=== PATIENT | female | born 1945 | race Native Hawaiian/Other Pacific Islander ===

== ENCOUNTER 2016-06-13 08:37 | Outpatient (CLI) | payer OTHER ==
[~2016-06-13 08:37] MED LIST: ENTERIC COATED325 MG PO; FURO40TA93 PO; LIPITOR20 MG PO; LISI10TA11 PO; POT CL MICRO20 MEQ OR; PREVACID30 MG OR; TRIA75TA61 PO; VESICARE10 MG OR; WARFARIN2.5 MG PO
[2016-06-13 09:10] LABS: POTASSIUM 3.6 mmol/L (3.6-5.2)
== END 2016-06-13 21:42 | disposition home or self-care (01) ==
LOC: LABW 08:37
PROVIDERS: Nurse Practitioner Adult Health
DX: Z79.01 Long term (current) use of anticoagulants (principal); Z79.899 Other long term (current) drug therapy; I48.0 Paroxysmal atrial fibrillation; Z51.81 Encounter for therapeutic drug level monitoring
CPT/HCPCS: 36415; 80048; 85610

== ENCOUNTER 2016-07-04 08:07 | Outpatient (CLI) | payer OTHER | END 2016-07-04 09:07 | disposition home or self-care (01) | LOC: LABW 08:07 | DX: Z79.01 Long term (current) use of anticoagulants (principal); I48.0 Paroxysmal atrial fibrillation; Z51.81 Encounter for therapeutic drug level monitoring | CPT/HCPCS: 36415; 85610 ==

== ENCOUNTER 2016-07-11 08:39 | Outpatient (CLI) | payer OTHER | END 2016-07-11 19:59 | disposition home or self-care (01) | LOC: LABW 08:39 | DX: Z79.01 Long term (current) use of anticoagulants (principal); I48.0 Paroxysmal atrial fibrillation; Z51.81 Encounter for therapeutic drug level monitoring | CPT/HCPCS: 36415; 85610 ==

== ENCOUNTER 2016-07-18 08:14 | Outpatient (CLI) | payer OTHER | END 2016-07-18 19:26 | disposition home or self-care (01) | LOC: LABW 08:14 | DX: Z79.01 Long term (current) use of anticoagulants (principal); I48.0 Paroxysmal atrial fibrillation; Z51.81 Encounter for therapeutic drug level monitoring | CPT/HCPCS: 36415; 85610 ==

== ENCOUNTER 2016-07-25 08:27 | Outpatient (CLI) | payer OTHER | END 2016-07-25 19:27 | disposition home or self-care (01) | LOC: LABW 08:27 | DX: Z79.01 Long term (current) use of anticoagulants (principal); I48.0 Paroxysmal atrial fibrillation; Z51.81 Encounter for therapeutic drug level monitoring | CPT/HCPCS: 85610 ==

== ENCOUNTER 2016-08-08 08:07 | Outpatient (CLI) | payer OTHER | END 2016-08-08 19:14 | disposition home or self-care (01) | LOC: LABW 08:07 | DX: Z79.01 Long term (current) use of anticoagulants (principal); I48.0 Paroxysmal atrial fibrillation; Z51.81 Encounter for therapeutic drug level monitoring | CPT/HCPCS: 36415; 85610 ==

== ENCOUNTER 2016-08-22 08:21 | Outpatient (CLI) | payer OTHER ==
[2016-08-22 08:50] LABS: POTASSIUM 3.4 mmol/L (3.6-5.2)
== END 2016-08-22 19:59 | disposition home or self-care (01) ==
LOC: LABW 08:21
PROVIDERS: Nurse Practitioner Adult Health
DX: I25.10 Atherosclerotic heart disease of native coronary artery without angina pectoris (principal); Z79.899 Other long term (current) drug therapy; Z51.81 Encounter for therapeutic drug level monitoring; Z79.01 Long term (current) use of anticoagulants; I48.0 Paroxysmal atrial fibrillation
CPT/HCPCS: 36415; 80048; 85610

== ENCOUNTER 2016-09-08 09:08 | Outpatient (CLI) | payer OTHER | END 2016-09-08 19:10 | disposition home or self-care (01) | LOC: MAMMO 09:08 | DX: Z12.31 Encounter for screening mammogram for malignant neoplasm of breast (principal); M81.0 Age-related osteoporosis without current pathological fracture | CPT/HCPCS: G0202-TC ==

== ENCOUNTER 2016-09-12 08:27 | Outpatient (CLI) | payer OTHER | END 2016-09-12 20:25 | disposition home or self-care (01) | LOC: LABW 08:27 | DX: Z79.01 Long term (current) use of anticoagulants (principal); I48.0 Paroxysmal atrial fibrillation; Z51.81 Encounter for therapeutic drug level monitoring | CPT/HCPCS: 36415; 85610 ==

== ENCOUNTER 2016-09-17 08:40 | Outpatient (CLI) | payer OTHER ==
[2016-09-17 10:04] LABS: POTASSIUM 4.3 mmol/L (3.6-5.2)
== END 2016-09-17 19:04 | disposition home or self-care (01) ==
LOC: LABW 08:40
PROVIDERS: Nurse Practitioner Adult Health
DX: I25.10 Atherosclerotic heart disease of native coronary artery without angina pectoris (principal); Z79.899 Other long term (current) drug therapy; Z51.81 Encounter for therapeutic drug level monitoring
CPT/HCPCS: 36415; 80048

== ENCOUNTER 2016-10-03 08:04 | Outpatient (CLI) | payer OTHER ==
[~2016-10-03] VITALS: Ht 157.5 cm; Wt 92.5 kg
[2016-10-03 08:36] VITALS: BP 128/76; TEMP 98
[2016-10-03 10:15] VITALS: BP 137/63; TEMP 97.9
== END 2016-10-03 10:15 | disposition home or self-care (01) ==
LOC: INF 08:04
DX: M81.0 Age-related osteoporosis without current pathological fracture (principal); Z79.01 Long term (current) use of anticoagulants; I48.0 Paroxysmal atrial fibrillation; Z51.81 Encounter for therapeutic drug level monitoring
CPT/HCPCS: 36415; 82310; 85610; 96372; J0897

== ENCOUNTER 2016-10-24 08:11 | Outpatient (CLI) | payer OTHER ==
[2016-10-24 08:33] LABS: POTASSIUM 3.9 mmol/L (3.6-5.2)
== END 2016-10-24 19:02 | disposition home or self-care (01) ==
LOC: LABW 08:11
PROVIDERS: Nurse Practitioner Adult Health
DX: I25.10 Atherosclerotic heart disease of native coronary artery without angina pectoris (principal); Z79.899 Other long term (current) drug therapy; Z51.81 Encounter for therapeutic drug level monitoring; Z79.01 Long term (current) use of anticoagulants; I48.0 Paroxysmal atrial fibrillation
CPT/HCPCS: 36415; 80048; 85610

== ENCOUNTER 2016-11-03 08:43 | Outpatient (CLI) | payer OTHER ==
[2016-11-03 09:39] LABS: PLATELET COUNT 134 K/uL (152-353)
[2016-11-03 09:56] LABS: POTASSIUM 4.2 mmol/L (3.6-5.2)
== END 2016-11-03 19:24 | disposition home or self-care (01) ==
LOC: LABW 08:43
PROVIDERS: Internal Medicine Hematology & Oncology
DX: Z79.01 Long term (current) use of anticoagulants (principal); Z51.81 Encounter for therapeutic drug level monitoring; I48.0 Paroxysmal atrial fibrillation; D64.89 Other specified anemias
CPT/HCPCS: 36415; 80053; 82728; 83540; 83550; 85027; 85610

== ENCOUNTER 2016-11-04 09:58 | Outpatient (CLI) | payer OTHER | END 2016-11-04 19:10 | disposition home or self-care (01) | LOC: RAD 09:58 | DX: R51 Headache (principal); M89.8X1 Other specified disorders of bone, shoulder; M25.511 Pain in right shoulder; R07.89 Other chest pain ==

== ENCOUNTER 2016-11-11 08:24 | Outpatient (CLI) | payer OTHER | END 2016-11-11 09:30 | disposition home or self-care (01) | LOC: LABW 08:24 | DX: Z79.01 Long term (current) use of anticoagulants (principal); I48.0 Paroxysmal atrial fibrillation; Z51.81 Encounter for therapeutic drug level monitoring | CPT/HCPCS: 36415; 85610 ==

== ENCOUNTER 2016-11-21 08:38 | Outpatient (CLI) | payer OTHER | END 2016-11-21 09:45 | disposition home or self-care (01) | LOC: LABW 08:38 | PROVIDERS: Nurse Practitioner Adult Health | DX: I25.10 Atherosclerotic heart disease of native coronary artery without angina pectoris (principal); Z79.899 Other long term (current) drug therapy; Z51.81 Encounter for therapeutic drug level monitoring; Z79.01 Long term (current) use of anticoagulants; I48.0 Paroxysmal atrial fibrillation | CPT/HCPCS: 36415; 80048; 85610 ==

== ENCOUNTER 2016-12-12 07:47 | Outpatient (CLI) | payer OTHER | END 2016-12-12 19:08 | disposition home or self-care (01) | LOC: LABW 07:47 | DX: Z79.01 Long term (current) use of anticoagulants (principal); I48.0 Paroxysmal atrial fibrillation; Z51.81 Encounter for therapeutic drug level monitoring | CPT/HCPCS: 36415; 85610 ==

== ENCOUNTER 2017-01-01 10:03 | Outpatient (CLI) | payer OTHER | END 2017-01-01 19:57 | disposition home or self-care (01) | LOC: US 10:03 | DX: R09.89 Other specified symptoms and signs involving the circulatory and respiratory systems (principal) ==

== ENCOUNTER 2017-01-02 08:02 | Outpatient (CLI) | payer OTHER | END 2017-01-02 09:05 | disposition home or self-care (01) | LOC: LABW 08:02 | PROVIDERS: Nurse Practitioner Adult Health | DX: I10 Essential (primary) hypertension (principal); Z79.01 Long term (current) use of anticoagulants; I48.0 Paroxysmal atrial fibrillation; Z51.81 Encounter for therapeutic drug level monitoring | CPT/HCPCS: 36415; 80061; 85610 ==

== ENCOUNTER 2017-01-09 07:53 | Outpatient (CLI) | payer OTHER | END 2017-01-09 19:58 | disposition home or self-care (01) | LOC: LABW 07:53 | DX: Z79.01 Long term (current) use of anticoagulants (principal); I48.0 Paroxysmal atrial fibrillation; Z51.81 Encounter for therapeutic drug level monitoring | CPT/HCPCS: 36415; 85610 ==

== ENCOUNTER 2017-01-19 08:39 | Outpatient (CLI) | payer OTHER | END 2017-01-19 19:31 | disposition home or self-care (01) | LOC: LABW 08:39 | DX: Z79.01 Long term (current) use of anticoagulants (principal); I48.0 Paroxysmal atrial fibrillation; Z51.81 Encounter for therapeutic drug level monitoring | CPT/HCPCS: 36415; 85610 ==

== ENCOUNTER 2017-01-30 10:00 | Outpatient (CLI) | payer OTHER | END 2017-01-30 11:00 | disposition home or self-care (01) | LOC: LABW 10:00 | DX: Z79.01 Long term (current) use of anticoagulants (principal); I48.0 Paroxysmal atrial fibrillation; Z51.81 Encounter for therapeutic drug level monitoring | CPT/HCPCS: 36415; 85610 ==

== ENCOUNTER 2017-02-06 07:45 | Outpatient (CLI) | payer OTHER | END 2017-02-06 18:53 | disposition home or self-care (01) | LOC: LABW 07:45 | DX: Z79.01 Long term (current) use of anticoagulants (principal); I48.0 Paroxysmal atrial fibrillation; Z51.81 Encounter for therapeutic drug level monitoring | CPT/HCPCS: 85610 ==

== ENCOUNTER 2017-02-13 07:53 | Outpatient (CLI) | payer OTHER | END 2017-02-13 08:55 | disposition home or self-care (01) | LOC: LABW 07:53 | DX: Z79.01 Long term (current) use of anticoagulants (principal); I48.0 Paroxysmal atrial fibrillation; Z51.81 Encounter for therapeutic drug level monitoring | CPT/HCPCS: 36415; 85610 ==

== ENCOUNTER 2017-02-20 07:52 | Outpatient (CLI) | payer OTHER | END 2017-02-20 19:08 | disposition home or self-care (01) | LOC: LABW 07:52 | DX: Z79.01 Long term (current) use of anticoagulants (principal); I48.0 Paroxysmal atrial fibrillation; Z51.81 Encounter for therapeutic drug level monitoring | CPT/HCPCS: 36415; 85610 ==

== ENCOUNTER 2017-02-27 08:23 | Outpatient (CLI) | payer OTHER | END 2017-02-27 09:25 | disposition home or self-care (01) | LOC: LABW 08:23 | DX: Z79.01 Long term (current) use of anticoagulants (principal); I48.0 Paroxysmal atrial fibrillation; Z51.81 Encounter for therapeutic drug level monitoring | CPT/HCPCS: 36415; 85610 ==

== ENCOUNTER 2017-03-06 08:27 | Outpatient (CLI) | payer OTHER | END 2017-03-06 19:06 | disposition home or self-care (01) | LOC: LABW 08:27 | DX: Z79.01 Long term (current) use of anticoagulants (principal); I48.0 Paroxysmal atrial fibrillation; Z51.81 Encounter for therapeutic drug level monitoring | CPT/HCPCS: 36415; 85610 ==

== ENCOUNTER 2017-03-13 08:06 | Outpatient (CLI) | payer OTHER | END 2017-03-13 09:10 | disposition home or self-care (01) | LOC: LABW 08:06 | DX: Z79.01 Long term (current) use of anticoagulants (principal); I48.0 Paroxysmal atrial fibrillation; Z51.81 Encounter for therapeutic drug level monitoring | CPT/HCPCS: 36415; 85610 ==

== ENCOUNTER 2017-03-16 08:15 | Outpatient (CLI) | payer OTHER | END 2017-03-16 09:15 | disposition home or self-care (01) | LOC: LABW 08:15 | DX: M81.0 Age-related osteoporosis without current pathological fracture (principal) | CPT/HCPCS: 36415; 82306 ==

== ENCOUNTER 2017-03-20 07:59 | Outpatient (CLI) | payer OTHER | END 2017-03-20 19:01 | disposition home or self-care (01) | LOC: LABW 07:59 | DX: Z79.01 Long term (current) use of anticoagulants (principal); Z51.81 Encounter for therapeutic drug level monitoring; I48.0 Paroxysmal atrial fibrillation | CPT/HCPCS: 36415; 85610 ==

== ENCOUNTER 2017-04-01 16:26 | Outpatient (CLI) | payer OTHER | END 2017-04-01 19:14 | disposition home or self-care (01) | LOC: US 16:26 → RAD 16:26 → US 19:14 | DX: M79.89 Other specified soft tissue disorders (principal) ==

== ENCOUNTER 2017-04-03 08:01 | Outpatient (CLI) | payer OTHER | END 2017-04-03 09:05 | disposition home or self-care (01) | LOC: LABW 08:01 | DX: Z79.01 Long term (current) use of anticoagulants (principal); I48.0 Paroxysmal atrial fibrillation; Z51.81 Encounter for therapeutic drug level monitoring | CPT/HCPCS: 36415; 85610 ==

== ENCOUNTER 2017-04-09 09:50 | Outpatient (CLI) | payer OTHER | END 2017-04-09 19:12 | disposition home or self-care (01) | LOC: RAD 09:50 | DX: M79.605 Pain in left leg (principal) ==

== ENCOUNTER 2017-04-24 08:13 | Outpatient (CLI) | payer OTHER | END 2017-04-24 09:15 | disposition home or self-care (01) | LOC: LABW 08:13 | DX: Z79.01 Long term (current) use of anticoagulants (principal); I48.0 Paroxysmal atrial fibrillation; Z51.81 Encounter for therapeutic drug level monitoring | CPT/HCPCS: 36415; 85610 ==

== ENCOUNTER 2017-05-05 07:59 | Outpatient (CLI) | payer OTHER ==
[2017-05-05 08:33] LABS: PLATELET COUNT 119 K/uL (152-353)
[2017-05-05 09:02] LABS: POTASSIUM 4.3 mmol/L (3.6-5.2)
== END 2017-05-05 09:00 | disposition home or self-care (01) ==
LOC: LABW 07:59
PROVIDERS: Internal Medicine Hematology & Oncology
DX: D64.9 Anemia, unspecified (principal)
CPT/HCPCS: 36415; 80053; 82607; 82728; 83540; 83550; 85027

== ENCOUNTER 2017-05-15 08:08 | Outpatient (CLI) | payer OTHER | END 2017-05-15 09:10 | disposition home or self-care (01) | LOC: LABW 08:08 | DX: Z79.01 Long term (current) use of anticoagulants (principal); I48.0 Paroxysmal atrial fibrillation; Z51.81 Encounter for therapeutic drug level monitoring | CPT/HCPCS: 36415; 85610 ==

== ENCOUNTER 2017-06-05 08:39 | Outpatient (CLI) | payer OTHER | END 2017-06-06 05:17 | disposition home or self-care (01) | LOC: LABW 08:39 | DX: Z79.01 Long term (current) use of anticoagulants (principal); Z51.81 Encounter for therapeutic drug level monitoring; I48.0 Paroxysmal atrial fibrillation | CPT/HCPCS: 36415; 85610 ==

== ENCOUNTER 2017-06-26 08:09 | Outpatient (CLI) | payer OTHER ==
[2017-06-26 08:41] LABS: PLATELET COUNT 127 K/uL (152-353)
[2017-06-26 09:11] LABS: POTASSIUM 4.2 mmol/L (3.6-5.2)
== END 2017-06-26 21:48 | disposition home or self-care (01) ==
LOC: LABW 08:09
PROVIDERS: Internal Medicine
DX: Z79.01 Long term (current) use of anticoagulants (principal); Z51.81 Encounter for therapeutic drug level monitoring; I48.0 Paroxysmal atrial fibrillation; N18.4 Chronic kidney disease, stage 4 (severe); Z79.899 Other long term (current) drug therapy
CPT/HCPCS: 36415; 80053; 81000; 82043; 82330; 82570; 82728; 82746; 83036; 83735; 83970; 84100; 84155; 84439; 84443; 84550; 85027; 85610; 85651; 86430; 87077; 87086; 87088; 87186

== ENCOUNTER 2017-07-17 08:19 | Outpatient (CLI) | payer OTHER | END 2017-07-17 19:37 | disposition home or self-care (01) | LOC: LABW 08:19 | DX: Z79.01 Long term (current) use of anticoagulants (principal); Z51.81 Encounter for therapeutic drug level monitoring; I48.0 Paroxysmal atrial fibrillation | CPT/HCPCS: 36415; 85610 ==

== ENCOUNTER 2017-08-07 08:50 | Outpatient (CLI) | payer OTHER | END 2017-08-07 21:21 | disposition home or self-care (01) | LOC: LABW 08:50 | DX: Z79.01 Long term (current) use of anticoagulants (principal); I48.0 Paroxysmal atrial fibrillation; Z51.81 Encounter for therapeutic drug level monitoring | CPT/HCPCS: 36415; 85610 ==

== ENCOUNTER 2017-08-28 08:27 | Outpatient (CLI) | payer OTHER | END 2017-08-28 19:01 | disposition home or self-care (01) | LOC: LABW 08:27 | DX: Z79.01 Long term (current) use of anticoagulants (principal); Z51.81 Encounter for therapeutic drug level monitoring; I48.0 Paroxysmal atrial fibrillation | CPT/HCPCS: 36415; 85610 ==

== ENCOUNTER 2017-09-07 11:37 | Outpatient (CLI) | payer OTHER ==
[2017-09-07 12:02] LABS: POTASSIUM 4.2 mmol/L (3.6-5.2)
== END 2017-09-07 21:49 | disposition home or self-care (01) ==
LOC: LABW 11:37
PROVIDERS: Internal Medicine
DX: E21.0 Primary hyperparathyroidism (principal)
CPT/HCPCS: 36415; 80053

== ENCOUNTER 2017-09-18 08:40 | Outpatient (CLI) | payer OTHER | END 2017-09-18 22:24 | disposition home or self-care (01) | LOC: LABW 08:40 | DX: Z79.01 Long term (current) use of anticoagulants (principal); Z51.81 Encounter for therapeutic drug level monitoring; I48.0 Paroxysmal atrial fibrillation | CPT/HCPCS: 36415; 85610 ==

== ENCOUNTER 2017-10-09 08:16 | Outpatient (CLI) | payer OTHER | END 2017-10-09 22:43 | disposition home or self-care (01) | LOC: LABW 08:16 | DX: Z79.01 Long term (current) use of anticoagulants (principal); I48.0 Paroxysmal atrial fibrillation; Z51.81 Encounter for therapeutic drug level monitoring | CPT/HCPCS: 36415; 85610 ==

== ENCOUNTER 2017-10-30 08:22 | Outpatient (CLI) | payer OTHER ==
[2017-10-30 09:06] LABS: PLATELET COUNT 133 K/uL (152-353)
[2017-10-30 09:18] LABS: POTASSIUM 4.2 mmol/L (3.6-5.2)
== END 2017-10-30 19:21 | disposition home or self-care (01) ==
LOC: LABW 08:22
PROVIDERS: Internal Medicine
DX: E21.0 Primary hyperparathyroidism (principal); N18.4 Chronic kidney disease, stage 4 (severe); Z79.01 Long term (current) use of anticoagulants; I48.0 Paroxysmal atrial fibrillation; Z51.81 Encounter for therapeutic drug level monitoring; R82.99 Other abnormal findings in urine
CPT/HCPCS: 36415; 80053; 81000; 82043; 82306; 82330; 82570; 83735; 83970; 84100; 84155; 85027; 85610; 87077; 87086; 87088; 87186

== ENCOUNTER 2017-11-06 08:05 | Outpatient (CLI) | payer OTHER | END 2017-11-06 19:09 | disposition home or self-care (01) | LOC: MAMMO 08:05 | DX: Z12.31 Encounter for screening mammogram for malignant neoplasm of breast (principal) ==

== ENCOUNTER 2017-11-11 08:15 | Outpatient (CLI) | payer OTHER ==
[2017-11-11 08:51] LABS: PLATELET COUNT 119 K/uL (152-353)
[2017-11-11 09:28] LABS: POTASSIUM 4.1 mmol/L (3.6-5.2)
== END 2017-11-11 19:23 | disposition home or self-care (01) ==
LOC: LABW 08:15
PROVIDERS: Internal Medicine Hematology & Oncology
DX: R53.83 Other fatigue (principal); R53.81 Other malaise; D64.9 Anemia, unspecified
CPT/HCPCS: 36415; 80053; 82248; 82728; 83540; 83550; 85027

== ENCOUNTER 2017-11-20 08:48 | Outpatient (CLI) | payer OTHER | END 2017-11-20 19:13 | disposition home or self-care (01) | LOC: LABW 08:48 | DX: I48.0 Paroxysmal atrial fibrillation (principal); Z79.01 Long term (current) use of anticoagulants | CPT/HCPCS: 36415; 85610 ==

== ENCOUNTER 2017-12-11 08:29 | Outpatient (CLI) | payer OTHER | END 2017-12-11 22:02 | disposition home or self-care (01) | LOC: LABW 08:29 | DX: Z79.01 Long term (current) use of anticoagulants (principal); I48.0 Paroxysmal atrial fibrillation; Z51.81 Encounter for therapeutic drug level monitoring | CPT/HCPCS: 36415; 85610 ==

== ENCOUNTER 2017-12-23 10:40 | Day surgery (SDC) | payer OTHER ==
[2017-12-23 12:17] LABS: PLATELET COUNT 130 K/uL (152-353)
[2017-12-23 12:19] LABS: POTASSIUM 4.5 mmol/L (3.6-5.2)
== END 2017-12-23 14:55 | disposition home or self-care (01) ==
LOC: OR 10:40
PROVIDERS: Internal Medicine Gastroenterology
PROC: 0DJD8ZZ Inspection of Lower Intestinal Tract, Via Natural or Artificial Opening Endoscopic (ICD-10-PCS; principal; 2017-12-23)
DX: K57.30 Diverticulosis of large intestine without perforation or abscess without bleeding (principal); K64.8 Other hemorrhoids; D50.8 Other iron deficiency anemias; Z80.0 Family history of malignant neoplasm of digestive organs
CPT/HCPCS: 80053; 85027; J2001; J2250; J2704

== ENCOUNTER 2018-01-01 08:10 | Outpatient (CLI) | payer OTHER | END 2018-01-01 19:14 | disposition home or self-care (01) | LOC: LABW 08:10 | PROVIDERS: Nurse Practitioner Adult Health | DX: E78.2 Mixed hyperlipidemia (principal); Z79.899 Other long term (current) drug therapy; Z79.01 Long term (current) use of anticoagulants | CPT/HCPCS: 36415; 80061; 80076; 85610 ==

== ENCOUNTER 2018-01-08 09:05 | Outpatient (CLI) | payer OTHER | END 2018-01-08 19:51 | disposition home or self-care (01) | LOC: LABW 09:05 | DX: I48.0 Paroxysmal atrial fibrillation (principal); Z79.01 Long term (current) use of anticoagulants | CPT/HCPCS: 36415; 85610 ==

== ENCOUNTER 2018-01-15 08:12 | Outpatient (CLI) | payer OTHER | END 2018-01-15 19:37 | disposition home or self-care (01) | LOC: LABW 08:12 | DX: Z79.01 Long term (current) use of anticoagulants (principal); I48.0 Paroxysmal atrial fibrillation | CPT/HCPCS: 36415; 85610 ==

== ENCOUNTER 2018-01-22 08:34 | Outpatient (CLI) | payer OTHER | END 2018-01-22 22:40 | disposition home or self-care (01) | LOC: LABW 08:34 | DX: Z79.01 Long term (current) use of anticoagulants (principal); I48.0 Paroxysmal atrial fibrillation | CPT/HCPCS: 36415; 85610 ==

== ENCOUNTER 2018-01-25 14:24 | Outpatient (CLI) | payer OTHER ==
[2018-01-25 14:41] LABS: PLATELET COUNT 159 K/uL (152-353)
== END 2018-01-25 20:53 | disposition home or self-care (01) ==
LOC: LABW 14:24
PROVIDERS: Nurse Practitioner Adult Health
DX: Z79.899 Other long term (current) drug therapy (principal); I48.0 Paroxysmal atrial fibrillation
CPT/HCPCS: 36415; 84436; 84443; 84479; 85027

== ENCOUNTER 2018-02-05 08:19 | Outpatient (CLI) | payer OTHER | END 2018-02-05 23:24 | disposition home or self-care (01) | LOC: LABW 08:19 | DX: I48.0 Paroxysmal atrial fibrillation (principal); Z79.01 Long term (current) use of anticoagulants | CPT/HCPCS: 36415; 85610 ==

== ENCOUNTER 2018-02-26 08:16 | Outpatient (CLI) | payer OTHER | END 2018-02-26 19:03 | disposition home or self-care (01) | LOC: LABW 08:16 | DX: I48.0 Paroxysmal atrial fibrillation (principal); Z79.01 Long term (current) use of anticoagulants | CPT/HCPCS: 36415; 85610 ==

== ENCOUNTER 2018-03-19 08:15 | Outpatient (CLI) | payer OTHER | END 2018-03-19 20:14 | disposition home or self-care (01) | LOC: LABW 08:15 | DX: I48.0 Paroxysmal atrial fibrillation (principal); Z79.01 Long term (current) use of anticoagulants | CPT/HCPCS: 36415; 85610 ==

== ENCOUNTER 2018-04-09 08:35 | Outpatient (CLI) | payer OTHER | END 2018-04-09 19:46 | disposition home or self-care (01) | LOC: LABW 08:35 | DX: Z79.01 Long term (current) use of anticoagulants (principal); I48.0 Paroxysmal atrial fibrillation | CPT/HCPCS: 36415; 85610 ==

== ENCOUNTER 2018-04-30 08:23 | Outpatient (CLI) | payer OTHER | END 2018-04-30 20:30 | disposition home or self-care (01) | LOC: LABW 08:23 | DX: I48.0 Paroxysmal atrial fibrillation (principal); Z79.01 Long term (current) use of anticoagulants | CPT/HCPCS: 36415; 85610 ==

== ENCOUNTER 2018-05-07 08:25 | Outpatient (CLI) | payer OTHER | END 2018-05-07 22:52 | disposition home or self-care (01) | LOC: LABW 08:25 | DX: Z79.01 Long term (current) use of anticoagulants (principal); I48.0 Paroxysmal atrial fibrillation | CPT/HCPCS: 36415; 85610 ==

== ENCOUNTER 2018-05-21 08:40 | Outpatient (CLI) | payer OTHER ==
[2018-05-21 09:05] LABS: PLATELET COUNT 170 K/uL (152-353)
[2018-05-21 09:07] LABS: POTASSIUM 4.1 mmol/L (3.6-5.2)
== END 2018-05-21 21:22 | disposition home or self-care (01) ==
LOC: LABW 08:40
PROVIDERS: Nurse Practitioner Family
DX: D64.9 Anemia, unspecified (principal); R53.83 Other fatigue; R53.81 Other malaise; R79.1 Abnormal coagulation profile
CPT/HCPCS: 36415; 80053; 85027; 85610

== ENCOUNTER 2018-06-10 08:52 | Outpatient (CLI) | payer OTHER | END 2018-06-10 19:08 | disposition home or self-care (01) | LOC: LABW 08:52 | DX: Z79.01 Long term (current) use of anticoagulants (principal); I48.0 Paroxysmal atrial fibrillation | CPT/HCPCS: 36415; 85610 ==

== ENCOUNTER 2018-07-01 08:07 | Outpatient (CLI) | payer OTHER | END 2018-07-01 23:15 | disposition home or self-care (01) | LOC: LABW 08:07 | DX: I48.0 Paroxysmal atrial fibrillation (principal); Z79.01 Long term (current) use of anticoagulants | CPT/HCPCS: 36415; 85610 ==

== ENCOUNTER 2018-07-09 08:39 | Outpatient (CLI) | payer OTHER | END 2018-07-09 22:37 | disposition home or self-care (01) | LOC: LABW 08:39 | DX: I48.0 Paroxysmal atrial fibrillation (principal); Z79.01 Long term (current) use of anticoagulants | CPT/HCPCS: 36415; 85610 ==

== ENCOUNTER 2018-07-23 09:00 | Outpatient (CLI) | payer OTHER | END 2018-07-23 19:38 | disposition home or self-care (01) | LOC: LABW 09:00 | DX: I48.0 Paroxysmal atrial fibrillation (principal); Z79.01 Long term (current) use of anticoagulants | CPT/HCPCS: 36415; 85610 ==

== ENCOUNTER 2018-07-30 08:19 | Outpatient (CLI) | payer OTHER | END 2018-07-30 22:20 | disposition home or self-care (01) | LOC: LABW 08:19 | DX: I48.0 Paroxysmal atrial fibrillation (principal); Z79.01 Long term (current) use of anticoagulants | CPT/HCPCS: 36415; 85610 ==

== ENCOUNTER 2018-08-06 08:23 | Outpatient (CLI) | payer OTHER | END 2018-08-06 19:06 | disposition home or self-care (01) | LOC: LABW 08:23 | DX: I48.0 Paroxysmal atrial fibrillation (principal); Z79.01 Long term (current) use of anticoagulants | CPT/HCPCS: 36415; 85610 ==

== ENCOUNTER 2018-08-13 09:57 | Outpatient (CLI) | payer OTHER | END 2018-08-13 23:59 | disposition home or self-care (01) | LOC: LABW 09:57 | DX: I48.0 Paroxysmal atrial fibrillation (principal); Z79.01 Long term (current) use of anticoagulants | CPT/HCPCS: 36415; 85610 ==

== ENCOUNTER 2018-08-20 09:16 | Outpatient (CLI) | payer OTHER | END 2018-08-20 19:46 | disposition home or self-care (01) | LOC: LABW 09:16 | DX: Z79.01 Long term (current) use of anticoagulants (principal); I48.0 Paroxysmal atrial fibrillation | CPT/HCPCS: 36415; 85610 ==

== ENCOUNTER 2018-09-03 09:30 | Outpatient (CLI) | payer OTHER | END 2018-09-03 20:06 | disposition home or self-care (01) | LOC: LABW 09:30 | DX: Z79.01 Long term (current) use of anticoagulants (principal); I48.0 Paroxysmal atrial fibrillation | CPT/HCPCS: 36415; 85610 ==

== ENCOUNTER 2018-09-08 09:03 | Outpatient (CLI) | payer OTHER ==
[2018-09-08 09:59] LABS: PLATELET COUNT 133 K/uL (152-353)
== END 2018-09-08 20:39 | disposition home or self-care (01) ==
LOC: LABW 09:03
PROVIDERS: Internal Medicine Gastroenterology
DX: D50.8 Other iron deficiency anemias (principal)
CPT/HCPCS: 36415; 82728; 83540; 85027

== ENCOUNTER 2018-09-20 08:32 | Outpatient (CLI) | payer OTHER ==
[2018-09-20 09:11] LABS: PLATELET COUNT 118 K/uL (152-353)
== END 2018-09-20 19:30 | disposition home or self-care (01) ==
LOC: LABW 08:32
PROVIDERS: Nurse Practitioner Family
DX: D64.9 Anemia, unspecified (principal)
CPT/HCPCS: 36415; 80053; 82728; 83540; 83550; 85027

== ENCOUNTER 2018-09-24 08:57 | Outpatient (CLI) | payer OTHER | END 2018-09-24 22:39 | disposition home or self-care (01) | LOC: LABW 08:57 | DX: Z79.01 Long term (current) use of anticoagulants (principal); I48.0 Paroxysmal atrial fibrillation | CPT/HCPCS: 36415; 85610 ==

== ENCOUNTER 2018-10-15 08:15 | Outpatient (CLI) | payer OTHER | END 2018-10-15 19:33 | disposition home or self-care (01) | LOC: LABW 08:15 | DX: Z79.01 Long term (current) use of anticoagulants (principal); I48.0 Paroxysmal atrial fibrillation | CPT/HCPCS: 36415; 85610 ==

== ENCOUNTER 2018-11-05 07:59 | Outpatient (CLI) | payer OTHER | END 2018-11-05 21:34 | disposition home or self-care (01) | LOC: LABW 07:59 | PROVIDERS: Nurse Practitioner Adult Health | DX: Z00.00 Encounter for general adult medical examination without abnormal findings (principal); I48.0 Paroxysmal atrial fibrillation; Z79.01 Long term (current) use of anticoagulants; I10 Essential (primary) hypertension; Z79.899 Other long term (current) drug therapy | CPT/HCPCS: 36415; 80061; 81000; 84439; 84443; 85610 ==

== ENCOUNTER 2018-11-11 08:41 | Outpatient (CLI) | payer OTHER | END 2018-11-11 19:41 | disposition home or self-care (01) | LOC: LABW 08:41 | DX: E78.2 Mixed hyperlipidemia (principal); Z79.899 Other long term (current) drug therapy; Z79.01 Long term (current) use of anticoagulants; I48.0 Paroxysmal atrial fibrillation | CPT/HCPCS: 36415; 80076; 85610 ==

== ENCOUNTER 2018-11-18 08:34 | Outpatient (CLI) | payer OTHER | END 2018-11-18 23:05 | disposition home or self-care (01) | LOC: LABW 08:34 | DX: I48.0 Paroxysmal atrial fibrillation (principal); Z79.01 Long term (current) use of anticoagulants | CPT/HCPCS: 36415; 85610 ==

== ENCOUNTER 2018-12-03 08:14 | Outpatient (CLI) | payer OTHER | END 2018-12-03 20:40 | disposition home or self-care (01) | LOC: LABW 08:14 | DX: I48.0 Paroxysmal atrial fibrillation (principal); Z79.01 Long term (current) use of anticoagulants | CPT/HCPCS: 36415; 85610 ==

== ENCOUNTER 2018-12-24 08:17 | Outpatient (CLI) | payer OTHER ==
[2018-12-24 08:52] LABS: PLATELET COUNT 191 K/uL (152-353)
[2018-12-24 09:03] LABS: POTASSIUM 3.3 mmol/L (3.6-5.2)
== END 2018-12-24 19:07 | disposition home or self-care (01) ==
LOC: LABW 08:17
PROVIDERS: Specialist
DX: I48.0 Paroxysmal atrial fibrillation (principal); E87.5 Hyperkalemia; N18.3 Chronic kidney disease, stage 3 (moderate); Z79.01 Long term (current) use of anticoagulants
CPT/HCPCS: 36415; 80053; 81000; 82330; 82570; 83735; 84100; 84155; 85027; 85610

== ENCOUNTER 2019-01-14 08:16 | Outpatient (CLI) | payer OTHER | END 2019-01-14 23:59 | disposition home or self-care (01) | LOC: LABW 08:16 | DX: I48.0 Paroxysmal atrial fibrillation (principal); Z79.01 Long term (current) use of anticoagulants | CPT/HCPCS: 36415; 85610 ==

== ENCOUNTER 2019-02-04 08:09 | Outpatient (CLI) | payer OTHER | END 2019-02-04 22:11 | disposition home or self-care (01) | LOC: LABW 08:09 | DX: I48.0 Paroxysmal atrial fibrillation (principal); Z79.01 Long term (current) use of anticoagulants | CPT/HCPCS: 36415; 85610 ==

== ENCOUNTER 2019-02-25 07:44 | Outpatient (CLI) | payer OTHER | END 2019-02-25 22:09 | disposition home or self-care (01) | LOC: LABW 07:44 | DX: I48.0 Paroxysmal atrial fibrillation (principal); Z79.01 Long term (current) use of anticoagulants | CPT/HCPCS: 36415; 85610 ==

== ENCOUNTER 2019-03-18 08:23 | Outpatient (CLI) | payer OTHER | END 2019-03-18 21:26 | disposition home or self-care (01) | LOC: LABW 08:23 | DX: I48.0 Paroxysmal atrial fibrillation (principal); Z79.01 Long term (current) use of anticoagulants | CPT/HCPCS: 36415; 85610 ==

== ENCOUNTER 2019-04-08 08:30 | Outpatient (CLI) | payer OTHER | END 2019-04-08 22:15 | disposition home or self-care (01) | LOC: LABW 08:30 | DX: I48.0 Paroxysmal atrial fibrillation (principal); Z79.01 Long term (current) use of anticoagulants | CPT/HCPCS: 36415; 85610 ==

== ENCOUNTER 2019-04-29 08:27 | Outpatient (CLI) | payer OTHER | END 2019-04-29 22:04 | disposition home or self-care (01) | LOC: LABW 08:27 | DX: I48.0 Paroxysmal atrial fibrillation (principal); Z79.01 Long term (current) use of anticoagulants | CPT/HCPCS: 36415; 85610 ==

== ENCOUNTER 2019-05-05 07:53 | Outpatient (CLI) | payer OTHER ==
[2019-05-05 08:13] LABS: PLATELET COUNT 178 K/uL (152-353)
[2019-05-05 08:46] LABS: POTASSIUM 4.3 mmol/L (3.6-5.2)
== END 2019-05-05 19:44 | disposition home or self-care (01) ==
LOC: MAMMO 07:53
PROVIDERS: Internal Medicine
DX: Z12.31 Encounter for screening mammogram for malignant neoplasm of breast (principal); D64.9 Anemia, unspecified
CPT/HCPCS: 36415; 80053; 82728; 83540; 83550; 85027

== ENCOUNTER 2019-05-19 08:05 | Outpatient (CLI) | payer OTHER | END 2019-05-19 19:26 | disposition home or self-care (01) | LOC: LABW 08:05 | DX: I48.0 Paroxysmal atrial fibrillation (principal); Z79.01 Long term (current) use of anticoagulants | CPT/HCPCS: 36415; 85610 ==

== ENCOUNTER 2019-06-10 08:16 | Outpatient (CLI) | payer OTHER | END 2019-06-10 16:00 | disposition home or self-care (01) | LOC: LABW 08:16 | DX: I48.0 Paroxysmal atrial fibrillation (principal); Z79.01 Long term (current) use of anticoagulants | CPT/HCPCS: 36415; 85610 ==

== ENCOUNTER 2019-06-17 08:27 | Outpatient (CLI) | payer OTHER | END 2019-06-17 19:52 | disposition home or self-care (01) | LOC: LABW 08:27 | DX: I48.0 Paroxysmal atrial fibrillation (principal); Z79.01 Long term (current) use of anticoagulants | CPT/HCPCS: 36415; 85610 ==

== ENCOUNTER 2019-06-21 07:59 | Outpatient (CLI) | payer OTHER ==
[2019-06-21 08:22] LABS: PLATELET COUNT 137 K/uL (152-353)
[2019-06-21 08:32] LABS: POTASSIUM 4.3 mmol/L (3.6-5.2)
== END 2019-06-21 20:08 | disposition home or self-care (01) ==
LOC: LABW 07:59
PROVIDERS: Internal Medicine
DX: N18.3 Chronic kidney disease, stage 3 (moderate) (principal); R82.998 Other abnormal findings in urine
CPT/HCPCS: 36415; 80053; 81000; 82330; 82570; 83735; 84100; 84155; 85027; 87077; 87086; 87088; 87186

== ENCOUNTER 2019-06-24 07:52 | Outpatient (CLI) | payer OTHER | END 2019-06-24 19:22 | disposition home or self-care (01) | LOC: LABW 07:52 | DX: I48.0 Paroxysmal atrial fibrillation (principal); Z79.01 Long term (current) use of anticoagulants | CPT/HCPCS: 36415; 85610 ==

== ENCOUNTER 2019-07-08 08:43 | Outpatient (CLI) | payer OTHER | END 2019-07-08 21:16 | disposition home or self-care (01) | LOC: LABW 08:43 | DX: I48.0 Paroxysmal atrial fibrillation (principal); Z79.01 Long term (current) use of anticoagulants | CPT/HCPCS: 36415; 85610 ==

== ENCOUNTER 2019-07-29 08:19 | Outpatient (CLI) | payer OTHER | END 2019-07-29 19:07 | disposition home or self-care (01) | LOC: LABW 08:19 | DX: Z79.01 Long term (current) use of anticoagulants (principal); I48.0 Paroxysmal atrial fibrillation | CPT/HCPCS: 36415; 85610 ==

== ENCOUNTER 2019-08-02 13:53 | Outpatient (CLI) | payer OTHER | END 2019-08-02 19:36 | disposition home or self-care (01) | LOC: RAD 13:53 | DX: R09.1 Pleurisy (principal) ==

== ENCOUNTER 2019-08-05 08:20 | Outpatient (CLI) | payer OTHER ==
[2019-08-05 08:40] LABS: PLATELET COUNT 144 K/uL (152-353)
== END 2019-08-05 22:44 | disposition home or self-care (01) ==
LOC: LABW 08:20
PROVIDERS: Internal Medicine Medical Oncology
DX: D64.9 Anemia, unspecified (principal)
CPT/HCPCS: 36415; 80053; 82728; 83540; 83550; 85027

== ENCOUNTER 2019-08-19 08:44 | Outpatient (CLI) | payer OTHER | END 2019-08-19 19:26 | disposition home or self-care (01) | LOC: LABW 08:44 | DX: I48.0 Paroxysmal atrial fibrillation (principal); Z79.01 Long term (current) use of anticoagulants | CPT/HCPCS: 36415; 85610 ==

== ENCOUNTER 2019-09-09 08:24 | Outpatient (CLI) | payer OTHER | END 2019-09-09 20:28 | disposition home or self-care (01) | LOC: LABW 08:24 | DX: Z79.01 Long term (current) use of anticoagulants (principal); I48.0 Paroxysmal atrial fibrillation | CPT/HCPCS: 36415; 85610 ==

== ENCOUNTER 2019-10-20 08:10 | Outpatient (CLI) | payer OTHER ==
[2019-10-20 09:54] LABS: PLATELET COUNT 146 K/uL (152-353)
== END 2019-10-20 22:52 | disposition home or self-care (01) ==
LOC: LABW 08:10
PROVIDERS: Internal Medicine
DX: N18.3 Chronic kidney disease, stage 3 (moderate) (principal); I48.0 Paroxysmal atrial fibrillation; Z79.01 Long term (current) use of anticoagulants
CPT/HCPCS: 36415; 80053; 81000; 82330; 82570; 83735; 84100; 84155; 85027; 85610

== ENCOUNTER 2019-11-09 11:03 | Outpatient (CLI) | payer OTHER | END 2019-11-09 19:18 | disposition home or self-care (01) | LOC: CT 11:03 | DX: M54.5 Low back pain (principal); M54.17 Radiculopathy, lumbosacral region; S22.088A Other fracture of T11-T12 vertebra, initial encounter for closed fracture ==

== ENCOUNTER 2019-11-16 02:39 | Inpatient (IN) | payer OTHER ==
[2019-11-16] VITALS (9 sets, daily range): BP systolic 89–131; BP diastolic 41–72; TEMP 97.7–98.6; Ht 157.5 cm; Wt 83.1 kg
[~2019-11-16] VITALS: Ht 157.5 cm; Wt 83.1 kg
[2019-11-16 04:58] LABS: POTASSIUM 4.5 mmol/L (3.6-5.2)
[2019-11-16 05:08] LABS: PLATELET COUNT 98 K/uL (152-353)
[2019-11-16 05:18] LABS: PARTIAL THROMBOPLASTIN TIME 61.2 SECONDS (24.5-33.6)
[2019-11-16] MEDS ORDERED: SOTALOL AF80 MG PO (09:42)
[2019-11-16] MEDS ORDERED: ESOMEPRAZOLE MA40 M1 PO (09:44)
[2019-11-16] MEDS ORDERED: B-12 COMPL1000 MCG/M IM (09:47)
[2019-11-17 04:00] VITALS: BP 109/58; TEMP 98.6
[2019-11-17 05:09] LABS: PLATELET COUNT 55 K/uL (152-353)
[2019-11-17 05:12] LABS: POTASSIUM 4.9 mmol/L (3.6-5.2)
[2019-11-17 08:00] VITALS: BP 149/65; TEMP 98
[2019-11-17 12:00] VITALS: BP 147/71; TEMP 97.6
[2019-11-17 16:00] VITALS: BP 132/59; TEMP 97.7
[2019-11-17 20:01] VITALS: BP 154/61; TEMP 97.7
[2019-11-17 23:58] VITALS: BP 136/72; TEMP 97.6
[2019-11-18 04:15] VITALS: BP 140/73; TEMP 98.4
[2019-11-18 04:36] LABS: POTASSIUM 4.8 mmol/L (3.6-5.2)
[2019-11-18 04:37] LABS: PLATELET COUNT 62 K/uL (152-353)
[2019-11-18 08:00] VITALS: BP 143/66; TEMP 97.5
[2019-11-18 12:00] VITALS: BP 140/51; TEMP 98.6
[2019-11-18 16:00] VITALS: BP 135/56; TEMP 97.9
[2019-11-18 20:00] VITALS: BP 147/51; TEMP 98.1
[2019-11-19] VITALS: BP 129/57; TEMP 97.6
[2019-11-19 04:00] VITALS: BP 115/61; TEMP 97.6
[2019-11-19 05:12] LABS: POTASSIUM 5.1 mmol/L (3.6-5.2)
[2019-11-19 05:38] LABS: PLATELET COUNT 80 K/uL (152-353)
[2019-11-19 08:00] VITALS: BP 157/98; TEMP 97.7
[2019-11-19 12:00] VITALS: BP 131/62; TEMP 97.8
[2019-11-19 16:00] VITALS: BP 148/54; TEMP 97.7
[2019-11-19 19:58] VITALS: BP 144/63; TEMP 98.3
[2019-11-20] VITALS: BP 169/60; TEMP 97.9
[2019-11-20 03:58] VITALS: BP 155/73; TEMP 98.1
[2019-11-20 05:56] LABS: PLATELET COUNT 91 K/uL (152-353)
[2019-11-20 06:23] LABS: POTASSIUM 5.2 mmol/L (3.6-5.2)
[2019-11-20 08:00] VITALS: BP 153/69; TEMP 98
[2019-11-20 12:00] VITALS: BP 130/51; TEMP 98.2
[2019-11-20 16:00] VITALS: BP 148/68; TEMP 98
[2019-11-20 20:00] VITALS: BP 145/67; TEMP 98.4
[2019-11-21] VITALS (7 sets, daily range): BP systolic 129–154; BP diastolic 62–81; TEMP 97.5–98.7
[2019-11-21 09:02] LABS: POTASSIUM 4.7 mmol/L (3.6-5.2)
[2019-11-21 09:49] LABS: PLATELET COUNT 122 K/uL (152-353)
[2019-11-22 03:47] VITALS: BP 127/72; TEMP 98.1
[2019-11-22 08:00] VITALS: BP 118/71; TEMP 98.1
[2019-11-22 12:00] VITALS: BP 80/40; TEMP 97.9
[2019-11-22 12:02] VITALS: BP 108/64
[2019-11-22 15:23] LABS: POTASSIUM 4.4 mmol/L (3.6-5.2)
[2019-11-22 16:00] VITALS: BP 112/65; TEMP 97.9
[2019-11-22 19:55] VITALS: BP 132/48; TEMP 97.7
[2019-11-23] VITALS: BP 111/55; TEMP 97.6
[2019-11-23 04:00] VITALS: BP 108/67; TEMP 97.4
[2019-11-23 05:41] LABS: PLATELET COUNT 172 K/uL (152-353)
[2019-11-23 08:00] VITALS: BP 134/63; TEMP 98.6
[2019-11-23 08:17] LABS: POTASSIUM 4.8 mmol/L (3.6-5.2)
[2019-11-23 12:00] VITALS: BP 124/51; TEMP 97.9
[2019-11-23 16:00] VITALS: BP 154/69; TEMP 97.9
[2019-11-23 20:00] VITALS: BP 107/39; TEMP 98.6
[2019-11-24] VITALS: BP 104/72; TEMP 98.4
[2019-11-24 04:00] VITALS: BP 110/67; TEMP 98.5
[2019-11-24 05:44] LABS: POTASSIUM 3.5 mmol/L (3.6-5.2)
[2019-11-24 06:55] LABS: PLATELET COUNT 142 K/uL (152-353)
[2019-11-24 08:00] VITALS: BP 117/56; TEMP 98.1
[2019-11-24 12:00] VITALS: BP 98/41; TEMP 97.9
[2019-11-24 16:00] VITALS: BP 114/54; TEMP 98.2
[2019-11-24 20:00] VITALS: BP 99/36; TEMP 98.6
[2019-11-25] VITALS: BP 102/76; TEMP 98.5
[2019-11-25 04:01] VITALS: BP 106/70; TEMP 98.5
[2019-11-25 08:00] VITALS: BP 112/52; TEMP 97.4
[2019-11-25 12:00] VITALS: BP 112/53; TEMP 97.4
[2019-11-25] MEDS ORDERED: ACET-206 PO (14:06)
[2019-11-25] MEDS ORDERED: CHOL100034 PO (14:07)
[2019-11-25] MEDS ORDERED: APIX1TAB PO (14:07)
[2019-11-25] MEDS ORDERED: DOCU100C10 PO (14:08)
[2019-11-25] MEDS ORDERED: CYCL10TA35 PO (14:08)
[2019-11-25] MEDS ORDERED: FAMOTIDINE20 MG PO (14:09)
[2019-11-25] MEDS ORDERED: LEVAQUIN 500MG TAB PO (14:09)
[2019-11-25] MEDS ORDERED: [UNRECOGNIZED DRUG - CODE] PO (14:10)
[2019-11-25] MEDS ORDERED: SIME80CH32 PO (14:10)
== END 2019-11-25 13:50 | disposition swing bed (61) | DRG 551 ==
LOC: ED 02:39 → MED/SURG 05:37
PROVIDERS: Internal Medicine; Internal Medicine Endocrinology, Diabetes & Metabolism; ADMIT Emergency Medicine Emergency Medical Services
DX: S22.088A Other fracture of T11-T12 vertebra, initial encounter for closed fracture (principal); G92 Toxic encephalopathy; A41.89 Other specified sepsis; N30.01 Acute cystitis with hematuria; N17.9 Acute kidney failure, unspecified; I48.91 Unspecified atrial fibrillation; K21.9 Gastro-esophageal reflux disease without esophagitis; E83.52 Hypercalcemia; E78.49 Other hyperlipidemia; I12.9 Hypertensive chronic kidney disease with stage 1 through stage 4 chronic kidney disease, or unspecified chronic kidney disease; N18.3 Chronic kidney disease, stage 3 (moderate); R62.7 Adult failure to thrive; B96.20 Unspecified Escherichia coli [E. coli] as the cause of diseases classified elsewhere; E83.42 Hypomagnesemia; R79.1 Abnormal coagulation profile
CPT/HCPCS: 36415; 80048; 80053; 81000; 82306; 82310; 83605; 83735; 83970; 84100; 84165; 84166; 84443; 85027; 85610; 85730; 87040; 87077; 87086; 87088; 87186; 87205; 93005; 96360; 96365; 96375; 99284; J0696; J1885; J1940; J1956; J2270; J3475; J7120

== ENCOUNTER 2019-11-25 13:51 | Inpatient (IN) | payer OTHER ==
[~2019-11-25] VITALS: Ht 157.5 cm; Wt 80.4 kg
[~2019-11-25 13:51] MED LIST changes: +B-12 COMPL1000 MCG/M IM; +ESOMEPRAZOLE MA40 M1 PO; +SOTALOL AF80 MG PO
[2019-11-25] MEDS ORDERED: ACET-206 PO (14:06)
[2019-11-25] MEDS ORDERED: APIX1TAB PO (14:07)
[2019-11-25] MEDS ORDERED: CHOL100034 PO (14:07)
[2019-11-25] MEDS ORDERED: CYCL10TA35 PO (14:08)
[2019-11-25] MEDS ORDERED: DOCU100C10 PO (14:08)
[2019-11-25] MEDS ORDERED: LEVAQUIN 500MG TAB PO (14:09)
[2019-11-25] MEDS ORDERED: FAMOTIDINE20 MG PO (14:09)
[2019-11-25] MEDS ORDERED: SIME80CH32 PO (14:10)
[2019-11-25] MEDS ORDERED: [UNRECOGNIZED DRUG - CODE] PO (14:10)
[2019-11-25 17:56] VITALS: BP 112/52; TEMP 97.4; Ht 157.5 cm; Wt 80.4 kg
[2019-11-25 20:00] VITALS: BP 124/64; TEMP 98
[2019-11-26 08:00] VITALS: BP 138/56; TEMP 97.4
[2019-11-27 09:41] VITALS: BP 145/68; TEMP 97.4
[2019-11-27 19:57] VITALS: BP 130/57; TEMP 97.4
[2019-11-28 16:28] LABS: POTASSIUM 3.1 mmol/L (3.6-5.2)
[2019-11-28 20:00] VITALS: BP 133/61; TEMP 98.2
[2019-11-29 08:00] VITALS: BP 127/55; TEMP 97.5
[2019-11-29 11:12] LABS: POTASSIUM 3.1 mmol/L (3.6-5.2)
[2019-11-29 20:00] VITALS: BP 103/51; TEMP 97.9
[2019-11-30 08:00] VITALS: BP 103/48; TEMP 97.9
[2019-12-01 05:43] LABS: PLATELET COUNT 125 K/uL (152-353)
[2019-12-01 05:56] LABS: POTASSIUM 2.9 mmol/L (3.6-5.2)
[2019-12-01 08:00] VITALS: BP 95/41; TEMP 97.6
[2019-12-01 20:00] VITALS: BP 109/86; TEMP 97.6
[2019-12-02 08:00] VITALS: BP 92/46; TEMP 97.2
[2019-12-02 20:01] VITALS: BP 87/43; TEMP 98.1
[2019-12-03 08:00] VITALS: BP 90/47; TEMP 97.7
[2019-12-03 11:00] VITALS: BP 75/34
[2019-12-03 12:58] VITALS: BP 99/50; TEMP 97.6
[2019-12-03 16:00] VITALS: BP 101/43; TEMP 98
[2019-12-03 16:14] VITALS: BP 101/43
[2019-12-03 20:00] VITALS: BP 101/44; TEMP 98.3
[2019-12-04 08:00] VITALS: BP 102/47; TEMP 98.1
[2019-12-04 08:22] LABS: POTASSIUM 4.3 mmol/L (3.6-5.2)
[2019-12-04 17:44] VITALS: BP 99/28; TEMP 98.1
[2019-12-04 19:54] VITALS: BP 93/54; TEMP 98.2
[2019-12-05 08:00] VITALS: BP 121/52; TEMP 98.7
[2019-12-05 08:38] LABS: POTASSIUM 3.7 mmol/L (3.6-5.2)
[2019-12-05 09:50] LABS: PLATELET COUNT 142 K/uL (152-353)
[2019-12-05 19:58] VITALS: BP 97/56; TEMP 98.9
[2019-12-06 08:00] VITALS: BP 169/81; TEMP 97.8
[2019-12-06 20:00] VITALS: BP 107/53; TEMP 97.8
[2019-12-07 08:00] VITALS: BP 123/52; TEMP 98.1
[2019-12-07] MEDS ORDERED: BLOOMIS59 NAS (14:53)
[2019-12-07] MEDS ORDERED: BLOOMIS59 PO ×3 (14:55→15:08)
[2019-12-07] MEDS ORDERED: BLOOMIS59 IM (15:07)
[2019-12-07] MEDS ORDERED: APIX1TAB PO (15:45)
== END 2019-12-07 17:20 | disposition home or self-care (01) | DRG 948 ==
LOC: MED/SURG 13:51
PROVIDERS: Internal Medicine Endocrinology, Diabetes & Metabolism; ADMIT Internal Medicine
DX: R53.1 Weakness (principal); S22.088A Other fracture of T11-T12 vertebra, initial encounter for closed fracture; N39.0 Urinary tract infection, site not specified; N17.8 Other acute kidney failure; R26.81 Unsteadiness on feet; I48.91 Unspecified atrial fibrillation; E78.49 Other hyperlipidemia; K21.9 Gastro-esophageal reflux disease without esophagitis; M81.8 Other osteoporosis without current pathological fracture; E83.42 Hypomagnesemia; E83.52 Hypercalcemia; R41.82 Altered mental status, unspecified; B96.20 Unspecified Escherichia coli [E. coli] as the cause of diseases classified elsewhere; I12.9 Hypertensive chronic kidney disease with stage 1 through stage 4 chronic kidney disease, or unspecified chronic kidney disease; N18.3 Chronic kidney disease, stage 3 (moderate)
CPT/HCPCS: 36415; 80048; 80053; 83735; 85027; 87081; 87635; G2023; J3475; U00003